=== PATIENT | female | born 1945 | race Caucasian/White ===

== ENCOUNTER 2017-04-30 12:01 | Emergency (ER) | payer OTHER ==
[~2017-04-30] VITALS: Ht 149.9 cm; Wt 71.8 kg
[2017-04-30 13:27] LABS: BASOPHIL % 0.9 % (0-2); PLATELET COUNT 225 x10^3mcL (130-400)
[2017-04-30 13:32] LABS: microscopic required? NO
[2017-04-30 13:33] LABS: CALCIUM 9.5 mg/dL (8.5-10.1); CARBON DIOXIDE 31.4 mmol/L (21-32); CHLORIDE SERUM 105 mmol/L (98-107); CREATININE SERUM 0.9 mg/dL (0.6-1.0); GLUCOSE SERUM 135 mg/dL (74-106); POTASSIUM SERUM 3.8 mmol/L (3.5-5.1); SODIUM SERUM 143 mmol/L (136-145)
[2017-04-30 13:39] LABS: urine erythrocyte NEGATIVE (NEGATIVE)
[2017-04-30 13:49] LABS: ALBUMIN 3.7 g/dL (3.4-5.0); ALKALINE PHOSPHATASE 135 U/L (46-116); ALT/SGPT 18 U/L (14-59); AST/SGOT 21 U/L (15-37); BILIRUBIN TOTAL 0.8 mg/dL (0.20-1.00); LIPASE 88 IU/L (73-393); TOTAL PROTEIN, SERUM 7.7 g/dL (6.4-8.2)
[2017-04-30 15:58] VITALS: BP 130/64
== END 2017-04-30 15:20 | disposition home or self-care (01) ==
LOC: ED 12:01
PROVIDERS: Emergency Medicine
DX: E86.0 Dehydration (principal)
CPT/HCPCS: J7030; Q0092

== ENCOUNTER → 2017-07-01 | Outpatient (CLI) | payer OTHER ==
[2017-07-01 13:00] LABS: microscopic required? NO
[2017-07-01 13:08] LABS: BASOPHIL % 0.4 % (0-2); PLATELET COUNT 253 x10^3mcL (130-400); RED CELL DISTRIBUTION WIDTH 14.1 % (11.5-14.5)
[2017-07-01 13:10] LABS: UA SPECIFIC GRAVITY <=1.005 (1.005-1.035); urine erythrocyte NEGATIVE (NEGATIVE)
[2017-07-01 16:58] LABS: ALBUMIN 3.9 g/dL (3.4-5.0); ALKALINE PHOSPHATASE 157 U/L (46-116); ALT/SGPT 24 U/L (14-59); AST/SGOT 27 U/L (15-37); BILIRUBIN TOTAL 0.58 mg/dL (0.20-1.00); CALCIUM 9.4 mg/dL (8.5-10.1); CARBON DIOXIDE 28.5 mmol/L (21-32); CHLORIDE SERUM 97 mmol/L (98-107); CHOLESTEROL 165 mg/dL (<200); CHOLESTEROL/HDL RATIO 3.2; CREATININE SERUM 0.7 mg/dL (0.6-1.0); FREE T4 1.12 ng/dL (0.76-1.46); GLUCOSE SERUM 121 mg/dL (74-106); HDL CHOLESTEROL 51 mg/dL (40-60); POTASSIUM SERUM 4.2 mmol/L (3.5-5.1); SODIUM SERUM 136 mmol/L (136-145); T4(THYROXINE) 8.6 ug/dL (4.7-13.3); TOTAL PROTEIN, SERUM 8.1 g/dL (6.4-8.2); TRIGLYCERIDES 135 mg/dL (<150)
== END | disposition home or self-care (01) ==
LOC: LB 10:21
DX: E11.9 Type 2 diabetes mellitus without complications (principal)
CPT/HCPCS: 84439

== ENCOUNTER → 2017-07-12 | Outpatient (CLI) | payer OTHER | END | disposition home or self-care (01) | LOC: LB 10:53 | DX: E04.1 Nontoxic single thyroid nodule (principal); E89.0 Postprocedural hypothyroidism; E66.9 Obesity, unspecified | CPT/HCPCS: 86376 ==

== ENCOUNTER 2017-10-23 04:28 | Inpatient (IN) | payer OTHER ==
[~2017-10-23] VITALS: Ht 152.4 cm; Wt 77.6 kg
[2017-10-23 05:00] LABS: PLATELET COUNT 234 x10^3mcL (130-400); RED CELL DISTRIBUTION WIDTH 13.4 % (11.5-14.5)
[2017-10-23 05:05] LABS: BASOPHIL % 0 % (0-2)
[2017-10-23 05:11] LABS: CALCIUM 9.6 mg/dL (8.5-10.1); CARBON DIOXIDE 27.6 mmol/L (21-32); CHLORIDE SERUM 96 mmol/L (98-107); CREATININE SERUM 1.6 mg/dL (0.6-1.0); GLUCOSE SERUM 208 mg/dL (74-106); POTASSIUM SERUM 5.4 mmol/L (3.5-5.1); SODIUM SERUM 132 mmol/L (136-145)
[2017-10-23 05:15] LABS: ALBUMIN 4.2 g/dL (3.4-5.0); ALKALINE PHOSPHATASE 124 U/L (46-116); ALT/SGPT 27 U/L (14-59); AST/SGOT 35 U/L (15-37); MAGNESIUM 1.5 mg/dL (1.8-2.4)
[2017-10-23 05:16] LABS: CHOLESTEROL 114 mg/dL (<200); HDL CHOLESTEROL 77 mg/dL (40-60)
[2017-10-23 07:39] LABS: UA SPECIFIC GRAVITY 1.015 (1.005-1.035); microscopic required? YES; urine erythrocyte NEGATIVE (NEGATIVE)
[2017-10-23 07:47] LABS: FREE T4 1.4 ng/dL (0.76-1.46); FREE THYROXINE INDEX 3.8 ug/dL (1.4-4.5); T4(THYROXINE) 11.3 ug/dL (4.7-13.3)
[2017-10-23 07:48] LABS: CHOLESTEROL/HDL RATIO 1.5
[2017-10-23] MEDS ORDERED: ACT30 PO (10:37)
[2017-10-23] MEDS ORDERED: DIOVAN160 MG PO (10:38)
[2017-10-23] MEDS ORDERED: LISINOPRIL10 MG PO (10:38)
[2017-10-23] MEDS ORDERED: SIMVASTATIN10 M1 PO (10:38)
[2017-10-23] MEDS ORDERED: HALOPERIDOL2 MG PO (10:39)
[2017-10-23] MEDS ORDERED: METFORMIN HCL1000 MG PO (10:39)
[2017-10-23 11:20] VITALS: BP 104/35
[2017-10-23 12:07] LABS: T3 TOTAL 0.97 ng/mL
[2017-10-23 13:19] LABS: CALCIUM 8.5 mg/dL (8.5-10.1); CARBON DIOXIDE 28.6 mmol/L (21-32); CHLORIDE SERUM 101 mmol/L (98-107); CREATININE SERUM 0.9 mg/dL (0.6-1.0); GLUCOSE SERUM 109 mg/dL (74-106); POTASSIUM SERUM 3.5 mmol/L (3.5-5.1); SODIUM SERUM 135 mmol/L (136-145)
[2017-10-23 13:28] VITALS: BP 97/38
[2017-10-23 15:28] LABS: AMPHETAMINE QUAL UR NONE DETECTED (NEG <=1000)
[2017-10-23 18:31] VITALS: BP 101/41
[2017-10-23 21:40] VITALS: BP 115/49
[2017-10-24 05:48] VITALS: BP 108/48
[2017-10-24 06:35] LABS: BASOPHIL % 0.4 % (0-2); PLATELET COUNT 174 x10^3mcL (130-400); RED CELL DISTRIBUTION WIDTH 13.6 % (11.5-14.5)
[2017-10-24 06:39] LABS: CALCIUM 8.3 mg/dL (8.5-10.1); CHLORIDE SERUM 104 mmol/L (98-107); CREATININE SERUM 0.7 mg/dL (0.6-1.0); GLUCOSE SERUM 102 mg/dL (74-106); MAGNESIUM 1.8 mg/dL (1.8-2.4); PHOSPHOROUS 3.2 mg/dL (2.5-4.9); POTASSIUM SERUM 3.4 mmol/L (3.5-5.1); SODIUM SERUM 138 mmol/L (136-145)
[2017-10-24 12:37] VITALS: BP 133/55
[2017-10-24 17:48] VITALS: BP 139/57
[2017-10-24 20:14] VITALS: BP 145/67
[2017-10-25] VITALS (11 sets, daily range): BP systolic 120–159; BP diastolic 46–79
[2017-10-25 09:09] LABS: CALCIUM 8.9 mg/dL (8.5-10.1); CARBON DIOXIDE 30.8 mmol/L (21-32); CHLORIDE SERUM 101 mmol/L (98-107); CREATININE SERUM 0.7 mg/dL (0.6-1.0); GLUCOSE SERUM 134 mg/dL (74-106); MAGNESIUM 1.3 mg/dL (1.8-2.4); PHOSPHOROUS 3.1 mg/dL (2.5-4.9); POTASSIUM SERUM 3.6 mmol/L (3.5-5.1); SODIUM SERUM 137 mmol/L (136-145)
[2017-10-25 09:16] LABS: BASOPHIL % 0.4 % (0-2); PLATELET COUNT 187 x10^3mcL (130-400); RED CELL DISTRIBUTION WIDTH 13.2 % (11.5-14.5)
[2017-10-26 06:00] VITALS: BP 157/77
[2017-10-26 06:13] LABS: BASOPHIL % 0.4 % (0-2); PLATELET COUNT 204 x10^3mcL (130-400); RED CELL DISTRIBUTION WIDTH 13.4 % (11.5-14.5)
[2017-10-26 06:29] LABS: CARBON DIOXIDE 26.8 mmol/L (21-32); CHLORIDE SERUM 100 mmol/L (98-107); CREATININE SERUM 0.6 mg/dL (0.6-1.0); GLUCOSE SERUM 135 mg/dL (74-106); MAGNESIUM 1.6 mg/dL (1.8-2.4); PHOSPHOROUS 2.9 mg/dL (2.5-4.9); POTASSIUM SERUM 3.4 mmol/L (3.5-5.1); SODIUM SERUM 138 mmol/L (136-145)
[2017-10-26] MEDS ORDERED: ECO81 PO (09:07)
[2017-10-26] MEDS ORDERED: METOPROLOL TART25 M1 PO (09:07)
[2017-10-26] MEDS ORDERED: COL100 PO (09:08)
[2017-10-26 09:30] VITALS: BP 141/66
[2017-10-26 11:32] VITALS: BP 141/66
[2017-10-26 11:57] VITALS: BP 123/72
== END 2017-10-26 17:00 | DRG 56 ==
LOC: ED 04:28 → EDBEDREQ 06:31 → DU 06:31
PROVIDERS: Emergency Medicine; Family Medicine
PROC: 0G9G3ZX Drainage of Left Thyroid Gland Lobe, Percutaneous Approach, Diagnostic (ICD-10-PCS; principal; 2017-10-24)
DX: G30.9 Alzheimer's disease, unspecified (principal); G93.41 Metabolic encephalopathy; N17.0 Acute kidney failure with tubular necrosis; E87.1 Hypo-osmolality and hyponatremia; S80.02XA Contusion of left knee, initial encounter; E86.0 Dehydration; E87.5 Hyperkalemia; E83.42 Hypomagnesemia; F02.80 Dementia in other diseases classified elsewhere, unspecified severity, without behavioral disturbance, psychotic disturbance, mood disturbance, and anxiety; G90.8 Other disorders of autonomic nervous system; E78.5 Hyperlipidemia, unspecified; E11.65 Type 2 diabetes mellitus with hyperglycemia; W18.39XA Other fall on same level, initial encounter; Y93.89 Activity, other specified; Y92.89 Other specified places as the place of occurrence of the external cause; Y99.8 Other external cause status; I10 Essential (primary) hypertension; E87.8 Other disorders of electrolyte and fluid balance, not elsewhere classified; I44.7 Left bundle-branch block, unspecified; E66.9 Obesity, unspecified; Z71.3 Dietary counseling and surveillance; D64.9 Anemia, unspecified; E07.89 Other specified disorders of thyroid; S93.402A Sprain of unspecified ligament of left ankle, initial encounter
CPT/HCPCS: 60100; 83880; 84439; 94150; 97110-GP; 97116-GP; 97530-GP; J2001; J2405; J3475; J7030; Q0092

== ENCOUNTER 2018-11-22 18:02 | Emergency (ER) | payer OTHER ==
[~2018-11-22] VITALS: Ht 152.4 cm; Wt 65.3 kg
[~2018-11-22 18:02] MED LIST: ACT30 PO; COL100 PO; DIOVAN160 MG PO; ECO81 PO; HALOPERIDOL2 MG PO; LISINOPRIL10 MG PO; METFORMIN HCL1000 MG PO; METOPROLOL TART25 M1 PO; SIMVASTATIN10 M1 PO
[2018-11-22 18:11] VITALS: Ht 152.4 cm; Wt 65.3 kg
[2018-11-22] MEDS ORDERED: DIOVAN160 MG PO (19:55)
[2018-11-22] MEDS ORDERED: MIRTAZAPINE15 M2 PO (19:55)
[2018-11-22 20:33] VITALS: BP 157/82
== END 2018-11-22 20:33 | disposition home or self-care (01) ==
LOC: ED 18:02
DX: S70.02XA Contusion of left hip, initial encounter (principal); Z90.49 Acquired absence of other specified parts of digestive tract; Z90.89 Acquired absence of other organs; Z90.710 Acquired absence of both cervix and uterus; W07.XXXA Fall from chair, initial encounter; Y93.89 Activity, other specified; Y92.89 Other specified places as the place of occurrence of the external cause; Y99.8 Other external cause status

== ENCOUNTER 2019-02-03 21:30 | Emergency (ER) | payer OTHER ==
[~2019-02-03] VITALS: Ht 152.4 cm; Wt 68.0 kg
[~2019-02-03 21:30] MED LIST changes: +MIRTAZAPINE15 M2 PO
[2019-02-03 21:40] VITALS: Ht 152.4 cm; Wt 68.0 kg
[2019-02-04 09:36] VITALS: BP 136/73
== END 2019-02-04 09:36 | disposition home or self-care (01) ==
LOC: ED 21:30
DX: S16.1XXA Strain of muscle, fascia and tendon at neck level, initial encounter (principal); S70.02XA Contusion of left hip, initial encounter; R55 Syncope and collapse; E11.9 Type 2 diabetes mellitus without complications; I10 Essential (primary) hypertension; W01.0XXA Fall on same level from slipping, tripping and stumbling without subsequent striking against object, initial encounter; Y93.89 Activity, other specified; Y92.89 Other specified places as the place of occurrence of the external cause; Y99.8 Other external cause status
CPT/HCPCS: J1885

== ENCOUNTER 2019-02-06 20:15 | Inpatient (IN) | payer OTHER ==
[~2019-02-06] VITALS: Ht 152.4 cm; Wt 82.2 kg
--- NOTE | 2019-02-06 20:25 | NUR ---
SPOKE TO [facility], [facility] THEY DO NOT ARRANGE TRANSPORTATION AND FAMILY IS RESPONSIBLE TO ARRANGE TRANSPORT BACK TO FACILITY. STATES PATIENTS DAUGHTER WAS INFORMED OF PATIENT COMING TO ED.
[2019-02-06 20:29] VITALS: Ht 152.4 cm; Wt 82.2 kg
--- NOTE | 2019-02-06 20:30 | NUR ---
PT BIB AMBULANCE TO ED WITH C/C OF FALL. PT HAS A HX OF DEMENTIA AND ALZHEIMER'S AND IS UNABLE TO RECALL THE FALL. PT WAS RECENTLY SEEN IN THE ED THIS WEEK FOR MECHANICAL FALLS WELL. PT PRESENTS WITH ED NO VISIBLE INJURIES, FULL ROM ON ALL EXTREMITIES. REPORTS MILD PAIN TO HER NECK. PT IS AWAKE, CALL LIGHT IN REACH.
[2019-02-06 21:24] LABS: BASOPHIL % 0.4 % (0-2); PLATELET COUNT 216 x10^3mcL (130-400); RED CELL DISTRIBUTION WIDTH 14.4 % (11.5-14.5)
[2019-02-06 21:42] LABS: CALCIUM 8.7 mg/dL (8.5-10.1); CHLORIDE SERUM 103 mmol/L (98-107); CREATININE SERUM 0.9 mg/dL (0.6-1.0); GLUCOSE SERUM 106 mg/dL (74-106); POTASSIUM SERUM 4.6 mmol/L (3.5-5.1); SODIUM SERUM 139 mmol/L (136-145)
[2019-02-06 21:46] LABS: ALBUMIN 3.6 g/dL (3.4-5.0); ALKALINE PHOSPHATASE 120 U/L (46-116); ALT/SGPT 15 U/L (14-59); AST/SGOT 14 U/L (15-37); BILIRUBIN TOTAL 0.31 mg/dL (0.20-1.00); LIPASE 206 IU/L (73-393); TOTAL PROTEIN, SERUM 7.2 g/dL (6.4-8.2)
--- NOTE | 2019-02-06 22:37 | NUR ---
PT SITTING COMFORTABLY IN [place] WITH CALL LIGHT IN REACH, AWAKE AND ALERT, RESP E/U, NAD NOTED. PT PROVIDED WITH BLANKET AND LIGHTS TURNED DOWN FOR COMFORT. SIDE RAILS UP FOR SAFETY AND BED IN LOWEST POSITION.
--- NOTE | 2019-02-06 23:55 | NUR ---
PT NOTED WITHOUT IV CATH IN [facility]. IV FOUND ON GROUND, ANGIOCATH INTACT. NO BLEEDING NOTED FROM IV SITE.
[2019-02-07 00:14] LABS: microscopic required? YES; urine erythrocyte TRACE (NEGATIVE)
[2019-02-07] MEDS ORDERED: SIMVASTATIN10 M1 PO (00:21)
[2019-02-07] MEDS ORDERED: MIRTAZAPINE15 M2 PO (00:21)
--- NOTE | 2019-02-07 00:24 | NUR ---
ATTEMPTED TO CALL DAUGHTER, RASHAUN PINO. NO ANSWER, LEFT A MESSAGE THAT PT WILL BE ADMITTED.
--- NOTE | 2019-02-07 01:10 | NUR ---
RESIDENT AT BEDSIDE
[2019-02-07 01:16] LABS: CHOLESTEROL/HDL RATIO 2.2; MAGNESIUM 1.7 mg/dL (1.8-2.4); PHOSPHOROUS 3.1 mg/dL (2.5-4.9)
--- NOTE | 2019-02-07 01:18 | NUR ---
REPORT CALLED TO JUAN NAJERA.
--- NOTE | 2019-02-07 01:32 | NUR ---
IV ROCEPHIN INITIATED PER ORDER, PT VERBALIZED UNDERSTANDING OF MEDICATION PRIOR TO ADMINISTRATION.
--- NOTE | 2019-02-07 01:35 | NUR ---
PT TRANSPORTED TO TELE AT THIS TIME BY EMT QASIM AND EMT VENTURA. PT AWAKE AND ALERT, RESP E/U, NAD NOTED UPON LEAVING ED. IV ROCEPHIN AND IV BOLUS SENT WITH PT TO BE CONTINUED ON MED SURG.
--- NOTE | 2019-02-07 01:45 | NUR ---
RECEIVED PT FROM ED VIA [facility] ACCOMPANIED BY EMT'S. PT IN NO ACUTE DISTRESS. EVEN AND UNLABORED RESPIRATIONS ON RA. MEDSURG PT. IV PATENT AND INTACT. ORIENTED PT TO ROOM AND SURROUNDINGS. INSTRUCTED ON USE OF CALL LIGHT WHEN IN NEED OF ASSISTANCE. C/O NECK PAIN AND HEADACHE, WILL MEDICATE PER EMAR. BED IN LOWEST POSITION. SIDE RAILS UPX2. FALL PRECAUTIONS IN PLACE. WILL CONTINUE TO MONITOR.
[2019-02-07 02:00] VITALS: BP 130/57
--- NOTE | 2019-02-07 03:22 | NUR ---
ASSISTED PT TO THE RESTROOM WITH HELP FROM NURSING AID. UNSTEADY, SHUFFLING GAIT NOTED. PT ABLE TO VOID FREELY WITH NO DIFFICULTIES. BSC PROVIDED. INSTRUCTED PT TO USE CALL LIGHT WHEN IN NEED OF ASSISTANCE. NECK PAIN AND HEADACHE RESOLVING AFTER MEDICATIONS ADMINISTERED PER EMAR. BED IN LOWEST POSITION. SIDE RAILS X2. FALL PRECAUTION IN PLACE. CALL LIGHT WITHIN REACH. WILL CONTINUE TO MONITOR.
[2019-02-07 05:02] LABS: CALCIUM 8.1 mg/dL (8.5-10.1); CHLORIDE SERUM 107 mmol/L (98-107); CREATININE SERUM 0.8 mg/dL (0.6-1.0); GLUCOSE SERUM 100 mg/dL (74-106); POTASSIUM SERUM 4.7 mmol/L (3.5-5.1); SODIUM SERUM 140 mmol/L (136-145)
[2019-02-07 05:05] LABS: BASOPHIL % 0.4 % (0-2); PLATELET COUNT 182 x10^3mcL (130-400); RED CELL DISTRIBUTION WIDTH 14.5 % (11.5-14.5)
[2019-02-07 05:13] VITALS: BP 129/55
--- NOTE | 2019-02-07 06:31 | NUR ---
PT SLEPT COMFORTABLY IN INTERVALS THROUGHOUT THE SHIFT. ALL NEEDS TENDED TO AND MET. ALL SCHEDULED MEDICATIONS GIVEN. IV PATENT AND INTACT. C/O NECK PAIN AND HEADACHE MEDICATED PER EMAR. BLOOD SUGAR CHECKED, 95, NO COVERAGE NEEDED PER SLIDING SCALE. FALL PRECAUTIONS IN PLACE. BED IN LOWEST POSITION. SIDE RAILS UPX2. CALL LIGHT WITHIN REACH. WILL ENDORSE TO ONCOMING SHIFT.
--- NOTE | 2019-02-07 07:27 | NUR ---
REPORT TAKEN FROM INTERN ARCHITECT NURSE AT THE BEDSIDE, PATIENT RESTING, CHEST RISE AND FALL OBSERVED. WILL CONTINUE TO MONITOR.
[2019-02-07 08:07] VITALS: BP 145/88
--- NOTE | 2019-02-07 13:25 | NUR ---
Discount pharmacy card and list to low cost medical clinics given to patient by Michael.
--- NOTE | 2019-02-07 15:46 | NUR ---
PT FOUND TO BE STADNING NEXT TO BED, PT GOT UP FROM BEDSIDE COMMODE WITHOUT ALERTING NURSING STAFF, PT THEN PULLED OUT HER IV LINE TO RIGHT AC. BLOOD OBSERVED ON PT'S GOWN AND ON THE FLOOR. PT ASSESSED, IN NAD, RETURNED TO BED WITH BED ALARM, GOWN CHANGED, IV TO BE PLACED BY RESOURCE NURSE, WILL CONTINUE TO MONITOR.
[2019-02-07 17:33] VITALS: BP 145/56
--- NOTE | 2019-02-07 19:19 | NUR ---
REPORT GIVEN TO TALENT ADVISOR NURSE AT THE BEDSIDE, CARE ENDORSED
--- NOTE | 2019-02-07 19:56 | NUR ---
RECEIVED AWAKE IN BED TRYING TO GET OUT OF BED WITHOUT CALLING FOR ASSISTANCE. SKIN WARM AND DRY TO TOUCH WITH LLE ECCHYMOSIS/BACK ECCHYMOSIS, INSTRUCTED PT TO CALL FOR ANY ASSISTANCE NEEDED , PT NEEDS FREQUENT VERBAL CUES FOR SAFETY. CALL LIGHT WITHIN REACH.
--- NOTE | 2019-02-08 | NUR ---
EYES CLSOED, NO FACIAL GRIMACING NOTED. NO S/S OF PAIN/DISCOMFORT, BUT STILL WITH EPISODES OF TRYINNG TO GET OUT OF BED WITHOUT ASSISTANCE. FREQUENT VISUAL CHECK DONE FOR SAFETY.
--- NOTE | 2019-02-08 05:37 | NUR ---
BLOOD SUGAR=85MG/DL, NO S/S OF GLYCEMIC REACTION. CONTINUES ON IVF NS AT 100CC/HR FOR HYDRATION TOLERATING WELL. NO S/S OF APIN/DISCOMFORT,
[2019-02-08 06:23] LABS: BASOPHIL % 0.5 % (0-2); PLATELET COUNT 180 x10^3mcL (130-400)
[2019-02-08 06:25] LABS: CARBON DIOXIDE 26.1 mmol/L (21-32); CHLORIDE SERUM 110 mmol/L (98-107); CREATININE SERUM 0.7 mg/dL (0.6-1.0); GLUCOSE SERUM 93 mg/dL (74-106); MAGNESIUM 1.5 mg/dL (1.8-2.4); PHOSPHOROUS 2.9 mg/dL (2.5-4.9); POTASSIUM SERUM 4.2 mmol/L (3.5-5.1); SODIUM SERUM 142 mmol/L (136-145)
[2019-02-08 06:31] LABS: RED CELL DISTRIBUTION WIDTH 14.6 % (11.5-14.5)
--- NOTE | 2019-02-08 07:15 | NUR ---
RECIEVED PT RESTING IN BED WITH NO C/O PAIN, DISTRESS, OR SOB.A/O X2 WITH DEMENTIA. NS RUNNING IN LAC AT 100ML/HR. INTACT AND PATENT WITH NO REDNESS OR INFLAMMATION. SAFETY PRECAUTIONS IN PLACE, CALLL LIGHT WITHIN REACH, SITTER AT BEDSIDE, WILL MONITOR.
[2019-02-08 08:37] VITALS: BP 136/53
--- NOTE | 2019-02-08 10:00 | NUR ---
PT STABLE WITH NO C/O OF ANY DISTRESS AT THIS TIME. ALL NEEDS ATTENDED TO. SAFETY PRECAUTIONS IN PLACE, CALL LIGHT WITHIN REACH, WILL MONITOR.
--- NOTE | 2019-02-08 13:30 | NUR ---
PT RESTING COMFORTABLY WITH NO C/O OF ANY DISTRESS AT THIS TIME. ALL NEEDS ATTENDED TO. SAFETY PRECAUTIONS IN PLACE, CALL LIGHT WITHIN REACH, WILL MONITOR.
--- NOTE | 2019-02-08 14:59 | NUR ---
CONSENTS FOR EGD/COLONOSCOPY SIGNED BY PT AND PUT IN CHART. CHECKLIST ALSO STARTED, FILLED IN MUCH POSSIBLE, AND PUT IN CHART.
--- NOTE | 2019-02-08 16:37 | NUR ---
PT REPORTS MILD GENERALIZED PAIN, MEDICATED WITH TYLENOL PER EMAR, WILL REASSESS.
[2019-02-08 16:44] VITALS: BP 167/67
--- NOTE | 2019-02-08 18:30 | NUR ---
PT STABLE AT THIS TIME WITH NO C/O PAIN OR DISTRESS. TOLERATED ALL CARES WELL. VS WNL. A/OX4 WITH NO BLACKMAN OR DIZZINESS. RESTING COMFORTABLY IN BED. IV INTACT AND PATENT TO LAC, NO REDNESS OR INFLAMMATION NOTED. NS RUNNING AT 100ML/HR. SAFETY PRECAUTIONS IN PLACE, CALL LIGHT WITHIN REACH, WILL ENDORSE CARE TO NIGHT NURSE.
--- NOTE | 2019-02-08 19:30 | NUR ---
RECIEVED PATIENT AT START OF SHIFT CONFUSED, ONLY ORIENTED TO SELF. CALM AND COOPERATIVE. MED-SURG. DENIES PAIN. NO SOB ON RA. IV TO LFA INFUSING WITHOUT ERYTHEMA OR INFILTRATION. BED ALARM ON. IN ROOM NEAR NURSES STATION.
[2019-02-08 20:42] VITALS: BP 155/55
--- NOTE | 2019-02-08 20:50 | NUR ---
PATIENT REPORTED ITCHINESS TO HER RIGHT UPPER ARM. BLANCHABLE ERYTHEMA AND NONPITTING LOCALIZED EDEMA NOTED. PATIENT STATED SHE JUST NOTICED IT AT THIS TIME. NO CURRENT IV MEDS ARE INFUSING, JUST NS TO HER LEFT FOREARM. NO ORAL MEDS GIVEN YET THIS SHIFT. NO SOB. LUNGS CLEAR. WILL NOTIFY .
--- NOTE | 2019-02-08 22:02 | NUR ---
DR. DYER SAYED RETURNED PAGE, AND WAS NOTIFIED OF PATIENTS RASH. HE STATED HE WOULD PUT AN ORDER IN FOR BENADRYL.
--- NOTE | 2019-02-09 00:37 | NUR ---
ORDER FOR BENADRYL WAS JUST VERIFIED. GIVEN PER EMAR AT THIS TIME. PATIENTS ARM IS LESS ERYTHEMIC, BUT PATIENT STILL REPORTS ITCHING.
--- NOTE | 2019-02-09 01:25 | NUR ---
PATIENTS EYES ARE CLOSED, BREATHS EVEN AND REGULAR. NO SOB ON RA. IV INFUSING WITHOUT COMPLICATION. BEDSIDE TABLE AND CALL LIGHT WITHIN REACH. BED ALARM ON.
[2019-02-09 06:24] VITALS: BP 142/54
[2019-02-09 06:25] LABS: BASOPHIL % 0.3 % (0-2); PLATELET COUNT 173 x10^3mcL (130-400); RED CELL DISTRIBUTION WIDTH 14.1 % (11.5-14.5)
--- NOTE | 2019-02-09 06:36 | NUR ---
NO SIGNIFICANT EVENTS THIS SHIFT. RESTING IN BED, NO SOB ON RA, NO SIGN OF DISTRESS. IV TO LAC INFUSING WELL. BED ALARM ON. CALL LIGHT WITHIN REACH. BED LOCKED AND IN LOWEST POSIITON. CALL LIGHT AND BEDSIDE TABLE WITHIN REACH.
[2019-02-09 06:41] LABS: CALCIUM 8.3 mg/dL (8.5-10.1); CARBON DIOXIDE 26.8 mmol/L (21-32); CHLORIDE SERUM 108 mmol/L (98-107); CREATININE SERUM 0.7 mg/dL (0.6-1.0); GLUCOSE SERUM 102 mg/dL (74-106); MAGNESIUM 1.6 mg/dL (1.8-2.4); PHOSPHOROUS 2.8 mg/dL (2.5-4.9); POTASSIUM SERUM 3.9 mmol/L (3.5-5.1); SODIUM SERUM 143 mmol/L (136-145)
[2019-02-09 07:12] VITALS: BP 130/60
--- NOTE | 2019-02-09 07:20 | NUR ---
RECEIVED PT FROM NIGHT NURSE. PT IS LAYING DOWN IN BED WITH HOB EATING BREAKFAST. PT LOOKS TO BE IN NO ACUTE DISTRESS AT THIS TIME AND DENIES ANY PAIN AT THIS TIME. IV SITE PATENT WITH NO SIGNS OF ERYTHEMA OR SWELLING WITH IV FLUIDS INFUSING. RESPIRATIONS EVEN AND UNLABORED ON ROOM AIR. BED IN LOWEST POSITION, CALL LIGHT WITHIN REACH. WILL CONTINUE TO MONITOR.
[2019-02-09 11:54] VITALS: BP 150/63
--- NOTE | 2019-02-09 14:00 | NUR ---
PT SITTING AT BEDSIDE COMMODE AT THIS TIME ASSISTED BY [employer]BOR END MAINSPRING FORMER. PT LOOKS TO BE IN NO ACUTE DISTRESS AT THIS TIME. IV SITE PATENT WITH NO SIGNS OF ERYTHEMA OR SWELLING WITH IV FLUIDS INFUSING. CALL LIGHT WITHIN REACH, AR[employer]OR [employer] MAINSPRING FORMER AT BEDSIDE. WILL CONTINUE TO MONITOR.
[2019-02-09 16:20] VITALS: BP 155/56
[2019-02-09 17:10] VITALS: BP 155/56
--- NOTE | 2019-02-09 17:15 | NUR ---
CALLED [facility] AND GAVE REPORT TO RASTAFARIAN, CHARGE NURSE. PT WILL BE GOING TO BE GOING TO ROOM 127B UNDER ACCEPTING DR. MALDONADO. DAUGHTER IN LAW WILL BE COMING TO TRANSPORT PT TO [facility], AWAITING DAUGHTER IN LAW ARRIVAL, IS SAID TO BE OFF WORK AT AROUND 1800.
--- NOTE | 2019-02-09 18:40 | NUR ---
PT IS LAYING DOWN IN BED WITH HOB UP RESTING WITH HOB UP. PT LOOKS TO BE IN NO ACUTE DISTRESS AND DENIES ANY PAIN AT THIS TIME. IV SITE PATENT WITH NO SIGNS OF ERYTHEMA OR SWELLING WITH IV FLUIDS INFUSING. RESPIRATIONS EVEN AND UNLABORED ON ROOM AIR. BED IN LOWEST POSITION, CALL LIGHT WITHIN REACH. AWAITING DAUGHTER IN LAW TO STRIP CUTTING MACHINE OPERATOR PT TO TRANSPORT TO [facility]. WILL ENDORSE TO ONCOMING SHIFT.
--- NOTE | 2019-02-09 20:04 | NUR ---
DISCHARGE PT HOME TO [facility] BY PRIVATE CAR(FAMILY ) PIV DC'D NO BLEEDING NOTED 4X4 INPLACE , DISCHARGE PARKAGE GIVEN TO , REOPRT WAS GIVEN TO THE FACILITY BY AM NURSE . PT IN NO DISTRESS UPON DISCHARGE .
== END 2019-02-09 20:06 | DRG 640 ==
LOC: ED 20:15 → MU 02-07 00:27
PROVIDERS: Emergency Medicine; ADMIT Internal Medicine
DX: E86.0 Dehydration (principal); G93.41 Metabolic encephalopathy; N17.0 Acute kidney failure with tubular necrosis; N39.0 Urinary tract infection, site not specified; E83.42 Hypomagnesemia; G30.9 Alzheimer's disease, unspecified; F02.80 Dementia in other diseases classified elsewhere, unspecified severity, without behavioral disturbance, psychotic disturbance, mood disturbance, and anxiety; I10 Essential (primary) hypertension; E11.9 Type 2 diabetes mellitus without complications; E78.00 Pure hypercholesterolemia, unspecified; E78.5 Hyperlipidemia, unspecified; R29.6 Repeated falls; Z68.33 Body mass index [BMI] 33.0-33.9, adult; Z79.84 Long term (current) use of oral hypoglycemic drugs; Z79.82 Long term (current) use of aspirin
CPT/HCPCS: 82962; 83880; 97110-GP; 97116-GP; 97530-GP; C9113; G0378; J0696; J1815; J7030; J7060; Q0092; Q0163